=== PATIENT | male | born 1995 | race Caucasian/White ===

== ENCOUNTER 2023-11-05 13:43 | Outpatient (AMB) | payer OTHER, SELFPAY ==
--- NOTE | 2023-11-05 13:52 | A.SPINEOV_ITS ---
Intake Visit Reasons: Low back pain Intake Note: Mr. 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 HPI: This 27-year-old male developed acute back pain radiating down his left leg into his calf approximately 6 weeks ago when he was lifting a light object. He was stuck in a flexed position. He visited a chiropractor who did not want to touch him and an MRI was ordered. In the meantime, the back pain has mostly resolved. The leg pain is gone. 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 PMH: Healthy Medications: None Allergies: None Social history: Nonsmoker Physical Exam: Pleasant male. Full range of motion of the lumbar spine. Straight leg raise is negative. No motor or sensory deficits Radiological Studies: MRI done at [facility] mild degenerative disc disease L5-S1 and a small disc bulge eccentric towards the left side Impression/Plan: This patient developed a small central disc herniation but possible influence of the left S1 nerve root that caused a S1 radiculopathy and back pain. Fortunately, the majority of symptoms have improved as expected. No surgery is indicated at this time. We briefly discussed what would be indications for spinal surgery. He is allowed to return to work without restrictions. Thank you for allowing me to participate in your patients care. total time spent was 50 minutes in counseling ,coordination of plan, personal review of imaging, and subsequent plan Jhonathan Singh MD, PhD Spine [facility] Trained Neurosurgeon Director, [facility] Coding Level of Care Code New Pt Level 4 (10994) Diagnoses Lumbar back pain with radiculopathy affecting lower extremity M54.16
== END 2023-11-05 14:51 | disposition home or self-care (01) ==
PROVIDERS: PCP Internal Medicine; Referring Provider Internal Medicine; Visit Provider Neurological Surgery
DX: M54.16 Radiculopathy, lumbar region (principal)
CPT/HCPCS: 99204

== ENCOUNTER → 2023-11-05 13:43 | Outpatient (BNVA) | payer OTHER, SELFPAY | PROVIDERS: PCP Internal Medicine; Visit Provider Neurological Surgery | DX: M54.16 Radiculopathy, lumbar region (principal) | CPT/HCPCS: 99202 ==